=== PATIENT | male | born 1950 | race Caucasian/White ===

== ENCOUNTER 2020-05-25 06:39 | Outpatient (CLI) | payer MEDICARE, OTHER, SELFPAY ==
--- NOTE | 2020-05-25 07:15 | USCV_ITS ---
Artur Scott Age: 69 Gender: M : 1950 Exam Date: 05/25/2020 07:07 Ordering Phys: Kenn Barragan MD ([email or web address]) Technologist: Rula Aguirre [place] [facility] [place]: BRADYCARDIA BP: 156 / 80 HR: 44 Rhythm: Sinus Technical Quality: Adequate MEASUREMENTS (Male / Female) Normal Values 2D ECHO LV Diastolic Diameter PLAX 3.1 cm 4.2 - 5.9 / 3.9 - 5.3 cm LV Systolic Diameter PLAX 2.2 cm LV Chamber Size 4.9 cm IVS Diastolic Thickness 1.3 cm 0.6 - 1.0 / 0.6 - 0.9 cm IVS Systolic Thickness 1.6 cm LVPW Diastolic Thickness 1.3 cm 0.6 - 1.0 / 0.6 - 0.9 cm LVPW Systolic Thickness 1.4 cm RV Chamber Size 3.5 cm LVOT Diameter 2.0 cm LV Ejection Fraction 2D Teich 56.5 % LV Ejection Fraction MOD 2C 56.3 % LV Ejection Fraction 2C AL 55.5 % LA Diameter 2.5 cm LA Width 4.3 cm LA Height 5.1 cm RA Width 4.4 cm RA Height 5.0 cm Aorta at Sinotubular Diameter 3.1 cm M-MODE LV Diastolic Diameter MM 5.0 cm 4.2 - 5.9 / 3.9 - 5.3 cm LV Systolic Diameter MM 3.0 cm LV Ejection Fraction MM Teich 69.5 % IVS Diastolic Thickness MM 1.1 cm 0.6 - 1.0 / 0.6 - 0.9 cm IVS Systolic Thickness MM 1.3 cm LVPW Diastolic Thickness MM 0.7 cm 0.6 - 1.0 / 0.6 - 0.9 cm LVPW Systolic Thickness MM 1.5 cm Aortic Annulus Diameter 3.1 cm LA Ao Ratio MM 0.8 MV E Point Septal Separation 0.6 cm DOPPLER AV Peak Velocity 163.7 cm/s LVOT Peak Velocity 104.0 cm/s AV Area Cont Eq vti 1.9 cm squared AV Area Cont Eq pk 2.1 cm squared MV Area PHT 3.2 cm squared Mitral E to A Ratio 0.9 MV E' Velocity 42.5 cm/s Mitral E to MV E' Ratio 7.5 Mitral E to LV E' Lateral Ratio 6.3 Mitral E to LV E' Septal Ratio 9.3 TR Peak Velocity 171.3 cm/s TR Peak Gradient 11.7 mmHg TV Peak E Velocity 44.0 cm/s Right Atrial Pressure 3.0 mmHg Pulmonary Artery Systolic Pressu 14.7 mmHg PV Peak Velocity 57.0 cm/s RV Acceleration Time 0.1 s RV Ejection Time 0.4 s RV AcT/ET 0.4 FINDINGS Left Ventricle Normal left ventricular size and systolic function, EF 55 %. Mild left ventricular hypertrophy. Right Ventricle The right ventricle is normal in size and function. Right Atrium Mildly increased right atrial size. Left Atrium Mildly increased left atrial size. Mitral Valve No gross abnormalities noted Aortic Valve Trace to mild aortic valve regurgitation. Thickened aortic valve. Tricuspid Valve Trace to mild tricuspid valve regurgitation. Pulmonic Valve Pulmonic valve not well visualized. Pericardium Normal pericardium without effusion. Aorta Normal aortic annulus size. CONCLUSIONS Normal left ventricular size and systolic function, EF 55 %. Mild left ventricular hypertrophy. Mild biatrial enlargement. Thickened aortic valve. Trace to mild aortic valve regurgitation. Trace to mild tricuspid valve regurgitation. Estimated pulmonary artery peak systolic pressure of 15 mmHg. There is no pericardial effusion. There are no intracardiac masses. No previous study is available for comparison. Dr Ivett Womakc MD [facility] (Electronically Signed) Final Date: 31 May 2020 02:24 S
== END 2020-05-25 06:40 | disposition home or self-care (01) ==
LOC: US 06:40
PROVIDERS: PCP Student in an Organized Health Care Education/Training Program; Visit Provider Internal Medicine Cardiovascular Disease
DX: R00.1 Bradycardia, unspecified (principal); I08.2 Rheumatic disorders of both aortic and tricuspid valves
CPT/HCPCS: 93306

== ENCOUNTER → 2021-11-03 09:49 | Outpatient (BNVA) | payer MEDICARE, OTHER, SELFPAY | PROVIDERS: PCP Student in an Organized Health Care Education/Training Program; Visit Provider Internal Medicine | DX: R00.1 Bradycardia, unspecified (principal); R07.2 Precordial pain; R06.00 Dyspnea, unspecified | CPT/HCPCS: 99214 ==

== ENCOUNTER 2022-02-18 03:34 | Inpatient (IN) | payer MEDICARE, OTHER, SELFPAY ==
[2022-02-18] VITALS (8 sets, daily range): BP systolic 122–137; BP diastolic 69–84; PULSE 52–73; RESP 14–16; TEMP 36.7–37.4; O2SAT 93–98
--- NOTE | 2022-02-18 03:48 | PM.HP ---
Providers/Chief Complaint Admitting Physician: Jacinto Gtz MD Primary Care Provider: Delmar Darnell Chief Complaint: right knee infusion,CVA History of Present Illness Artur Scott is a 71 year old male with a past medical history of bradycardia, mild LVH, tree of osteoarthritis, history of TIA, COPD, who presents to [facility] as a transfer from [facility] for right knee swelling, and concerns for subacute CVA. Currently patient is alert oriented x3, has slurring of his words, mild left facial droop, his speech is at times difficult to understand given his slurring of his words. He tells me that he initially presented to [facility] due to severe right knee swelling and right knee pain, he tells me that this is a chronic issue from him he has had it for years due to severe right knee osteoarthritis. However the right knee pain and swelling has significantly worsened such that he is not able to ambulate and that is why he went to [facility]. He had a CT of his right knee which showed a right knee joint effusion, WBC count 7.7, no other significant electrolyte abnormalities, due to slurring of his words, CT scan of the head was ordered, which revealed left internal capsule small subacute to early chronic infarct. This was the reason for transfer. Patient tells me that he has had slurred words, for some period of time, he has had a stroke in the past. He tells me that his slurred speech is chronic, but is worsened over the last few days, no focal neurologic deficits, no focal numbness, no trouble coordinating, no recent falls, no visual deficits, his only complaint is difficulty walking due to severe right knee pain. [facility] was consulted by ER physician, they recommended evaluation at stroke dedicated hospital. That timeframe of his stroke is unknown, as he has not noticed any differences recently except his slight worsening of his slurred speech, he does have a slight left facial droop on examination, however he tells me he has not noticed anything nor has his . Review of Systems Eyes: Denies: change in vision Card: Denies: chest pain Resp: Denies: dyspnea GI: Denies: abdominal pain Musc: Reports: extremity pain, extremity swelling, joint pain and joint swelling Skin/Breast: Denies: rash Neuro: Reports: difficulty walking; Denies: headache(s), numbness in extremities, weakness in extremities, sensory changes, lack of coordination, confusion or difficulty communicating thoughts Medications/Allergies Home Medications Medication Instructions Recorded Confirmed Last Taken Type ibuprofen 800 mg tablet 800 mg PO Q8H 05/11/20 11/03/21 Unknown History omeprazole 20 mg capsule,delayed 20 mg PO DAILY 05/11/20 11/03/21 Unknown History release mirtazapine 15 mg tablet 15 mg PO DAILY PRN 11/03/21 11/03/21 Unknown History trazodone 50 mg tablet 100 mg PO DAILY PRN 11/03/21 11/03/21 Unknown History tamsulosin 0.4 mg capsule (Flomax) 0.4 mg PO DAILY 02/18/22 02/18/22 Unknown History Allergies Allergy/AdvReac Type Severity Reaction Status Date / Time Penicillins Allergy shortness Verified 11/03/21 10:02 of breath codeine AdvReac Intermediate vomiting Verified 11/03/21 10:02 PFSH Acute PFSH: Medical History BPH (benign prostatic hyperplasia) Bradycardia Chest pain CVA (cerebral vascular accident) GERD (gastroesophageal reflux disease) History of pituitary tumor Insomnia Major depression Pituitary adenoma Rotator cuff tear Sleep apnea TBI (traumatic brain injury) Surgical History H/O: knee surgery History of abdominal surgery History of appendectomy History of back surgery Hx of cholecystectomy Family History Other Cancer Hypertension Denies family history of Diabetes CAD (coronary artery disease) Dementia Psychiatric illness Chronic kidney disease (CKD) Family history of premature coronary artery disease Lung disease Stroke Social History Smoking and tobacco status: former smoker Alcohol intake: never Physical Exam Const: COMMON NORMALS: no acute distress and patient oriented x3 HENMT: COMMON NORMALS: normocephalic HEAD & SCALP: normocephalic Eye: COMMON NORMALS: Equal, round and reactive pupils present and EOMs intact bilaterally Neck/C-Spine: COMMON NORMALS: no JVD Resp: COMMON NORMALS: normal respiratory effort, No retractions, No use of accessory muscles and clear to auscultation bilaterally AUSCULTATION: clear to auscultation bilaterally Cardio: COMMON NORMALS: no JVD, regular rate, regular rhythm, S1 normal heart sound present and S2 normal heart sound present RATE: regular rate RHYTHM: regular rhythm HEART SOUNDS: S1 normal heart sound present and S2 normal heart sound present GI: COMMON NORMALS: Normal to inspection, nondistended, normoactive bowel sounds present, Soft to palpation, non-tender, No hepatosplenomegaly present, no masses and no bruits PALPATION: Yes Soft to palpation and Yes No hepatosplenomegaly present Extremity: COMMON NORMALS: no pedal edema NARRATIVE EXTREMITY EXAM: On examination, right knee swelling, erythema, tenderness Neuro: COMMON NORMALS: patient oriented x3, CN's II-XII intact bilaterally, moves all extremities and no focal motor deficits OTHER: Slurring of words, mild left facial droop Psych: COMMON NORMALS: mental status grossly normal A&P Assessment and plan (1) CVA (cerebral vascular accident): Status: Acute (2) Swelling of right knee joint: Status: Acute Plan Right knee swelling -No fever, complaints, no leukocytosis -He reports chronic right knee swelling for many years, recently worse, now pain with ambulation, no history of right knee surgery, no history of replacement -Likely related to osteoarthritis -I feel unlikely to be septic knee joint -However will order inflammatory markers, CBC, Pro-Osmel, ESR, CBC, uric acid -We will consult orthopedic service in the morning about arthrocentesis CVA -Timeframe unknown -Does have chronic slurring of his words, now acutely worsened, with left facial droop on examination, patient has not noticed anything, no other focal neurologic deficits -Aspirin, statin -Carotid artery ultrasound, cardiac echo -PT OT, speech therapy eval -Full code -SCDs for DVT prophylaxis for now, hold Lovenox and plans for arthrocentesis Attestations Medical Necessity Statement*: Patient requires hospitalization, outpatient with observation, for CVA, right knee swelling Coding Level of Care Code Acute Film Maker for Bryan Gudino Diagnoses CVA (cerebral vascular accident) I63.9 Swelling of right knee joint M25.461
--- NOTE | 2022-02-18 03:58 | USR_ITS ---
PROCEDURE INFORMATION: Exam: US Duplex Bilateral Extracranial Arteries, Carotid Arteries Exam date and time: 02/18/2022 4:44 AM Age: 71 years old Clinical indication: Speech disturbance; Patient HX: PT has had slurred speech for awhile but tonight Thought it was worse. ; Additional info: CVA TECHNIQUE: Imaging protocol: Real-time Duplex ultrasound scan of the bilateral carotid and vertebral arteries combining gambino scale, color Doppler and spectral waveform analysis. Bilateral exam. Exam focused on the carotid arteries. COMPARISON: No relevant prior studies available. FINDINGS: Right common carotid artery: Unremarkable. No occlusion or stenosis. Waveforms are normal. PSV 94.8 cm/s in the mid common carotid artery. Right internal carotid artery: Unremarkable. No occlusion or stenosis. Waveforms are normal. PSV 93.7 cm/s for the proximal right ICA. Right ICA/CCA ratio: Within normal limits. Right external carotid artery: No stenosis in the origin. Right vertebral artery: Unremarkable. Antegrade flow. Left common carotid artery: Unremarkable. No occlusion or stenosis. Waveforms are normal. PSV 78.9 cm/s for proximal CCA. Left internal carotid artery: Unremarkable. No occlusion or stenosis. Waveforms are normal. PSV 74.9 cm/s for the distal ICA. Left ICA/CCA ratio: Within normal limits. Left external carotid artery: No stenosis in the origin. Left vertebral artery: Unremarkable. Antegrade flow. US/CV carotid duplex BI* [id number] IMPRESSION: No carotid arterial stenosis. REFERENCES: SRU CRITERIA. The degree of internal carotid artery stenosis is based on criteria defined by the Society of Radiologists in Ultrasound (SRU). Normal is no stenosis. Mild is less than 50% stenosis. Moderate is 50-69% stenosis. Severe is greater than 69% stenosis to near occlusion. Near occlusion is a markedly narrowed lumen. Total occlusion is no detectable patent lumen.
--- NOTE | 2022-02-18 03:58 | USCV_ITS ---
Artur Scott Age: 71 Gender: M : 1950 Exam Date: 02/18/2022 04:22 Ordering Phys: Jacinto Gtz MD Technologist: Cathi Almonte [place] [facility] [place]: CVA BP: / HR: 53 Rhythm: Sinus Technical Quality: Adequate MEASUREMENTS (Male / Female) Normal Values 2D ECHO LV Diastolic Diameter PLAX 4.1 cm 4.2 - 5.9 / 3.9 - 5.3 cm LV Systolic Diameter PLAX 2.4 cm LV Chamber Size 4.0 cm IVS Diastolic Thickness 1.2 cm 0.6 - 1.0 / 0.6 - 0.9 cm IVS Systolic Thickness 1.3 cm LVPW Diastolic Thickness 1.2 cm 0.6 - 1.0 / 0.6 - 0.9 cm LVPW Systolic Thickness 1.4 cm RV Chamber Size 3.9 cm LVOT Diameter 2.0 cm LV Ejection Fraction 2D Teich 72.4 % LV Ejection Fraction MOD 2C 72.0 % LV Ejection Fraction 2C AL 71.5 % LA Diameter 2.9 cm LA Width 2.7 cm LA Height 3.3 cm RA Width 3.3 cm RA Height 2.8 cm Aorta at Sinotubular Diameter 2.8 cm IVC Diameter 0.9 cm M-MODE Aortic Annulus Diameter 2.7 cm LA Ao Ratio MM 1.2 MV E Point Septal Separation 0.1 cm DOPPLER AV Peak Velocity 147.0 cm/s LVOT Peak Velocity 90.0 cm/s AV Area Cont Eq vti 2.2 cm squared AV Area Cont Eq pk 1.9 cm squared MV Area PHT 2.1 cm squared Mitral E to A Ratio 0.9 MV E' Velocity 39.0 cm/s Mitral E to MV E' Ratio 5.7 Mitral E to LV E' Lateral Ratio 6.3 Mitral E to LV E' Septal Ratio 5.2 TR Peak Velocity 196.8 cm/s TR Peak Gradient 15.5 mmHg TR Mean Velocity 137.9 cm/s TR Mean Gradient 9.8 mmHg TR Velocity Time Integral 45.7 cm TV Peak E Velocity 70.0 cm/s Right Atrial Pressure 3.0 mmHg Pulmonary Artery Systolic Pressu 18.5 mmHg RV Acceleration Time 0.2 s RV Ejection Time 0.3 s RV AcT/ET 0.5 FINDINGS Left Ventricle Normal left ventricular size, systolic function and wall thickness, with no regional wall motion abnormalities. Grade I/IV diastolic dysfunction (abnormal relaxation filling pattern), normal to mildly elevated filling pressures. Left ventricular ejection fraction is estimated at 65 %. Right Ventricle Normal right ventricular size and systolic function. Normal right ventricular systolic pressure. Right Atrium The right atrium is normal in size. Left Atrium The left atrium is normal in size. Mitral Valve Structurally normal mitral valve without significant stenosis or prolapse. There is no mitral regurgitation. Aortic Valve Structurally normal trileaflet aortic valve. Mild aortic valve regurgitation. No aortic valve stenosis. Tricuspid Valve Structurally normal tricuspid valve. Mild tricuspid valve regurgitation. Pulmonic Valve Pulmonic valve not well visualized. Pericardium Normal pericardium without effusion. Aorta Normal ascending aorta dimension. IVC The inferior vena cava appears normal. CONCLUSIONS Normal left ventricular size, systolic function and wall thickness, with no regional wall motion abnormalities. Grade I/IV diastolic dysfunction (abnormal relaxation filling pattern), normal to mildly elevated filling pressures. Left ventricular ejection fraction is estimated at 65 %. Structurally normal trileaflet aortic valve. Mild aortic valve regurgitation. No aortic valve stenosis. No significant change since the prior echocardiogram study of 05/31/20 Dr. Fox Farrar MD (Electronically Signed) Final Date: 18 February 2022 08:29 S
--- NOTE | 2022-02-18 04:01 | ECG_ITS ---
[facility] Test Date: 2022-02-18 Pat Name: Artur Scott Department: Room: 263 Gender: Male Giver: : 1950 Requested By: Jacinto Gzt Order Number: [id number] Mike MD: Fox Farrar M.D. Measurements Intervals [place] Rate: 54 P: 61 SD: 180 QRS: 27 QRSD: 90 T: 53 QT: 436 QTc: 413 Interpretive Statements SINUS BRADYCARDIA No previous ECG available for comparison Electronically Signed On 02-18-2022 8:37:19 CDT by Fox Farrar M.D. [id number]
--- NOTE | 2022-02-18 04:08 | PC.NURSE ---
Patient has slurred speech. Software Design Manager are equal. Patient is alert and oriented x4. PERRLA present. Patient has swelling to right knee.
[2022-02-18] MEDS: acetaminophen 325 mg Tablet 650 MG PO (04:13)
[2022-02-18] MEDS: sodium chloride 0.9% 1,000 ML 50 ML IV ×2 (04:14→19:54)
--- NOTE | 2022-02-18 04:20 | PC.NURSE ---
Patient has drift to right leg, however patient states that it is due to pain in his right leg. Patient educated furnace converter light and has call light within reach.
--- NOTE | 2022-02-18 05:08 | PC.NURSE ---
Patient refusing SCD to right leg due to having pain in right leg.
[2022-02-18 05:56] LABS: Basophils # 0.1 10^3/uL (0.0-0.1); Basophils % 0.8 %; Eosinophils # 0.3 10^3/uL (0.0-0.8); Eosinophils % 3.8 %; Hematocrit 37.7 % (42.0-52.0); Hemoglobin 11.9 g/dL (11.7-16.6); Lymphocytes # 1.8 10^3/uL (0.8-4.8); Lymphocytes % 22.2 %; Mean Corpuscular HGB Conc 31.6 g/dL (30.0-36.0); Mean Corpuscular Hemoglobin 28.7 pg (28.0-34.0); Mean Corpuscular Volume 91.1 fl (80-94); Mean Platelet Volume 10.4 fL (7.4-10.4); Monocytes % 12.6 %; Neutrophils # 4.78 10^3/uL (1.8-7.7); Neutrophils % 60.2 %; Nucleated Red Blood Cells % 0 %; Platelet Count 276 10^3/cmm (130-400); Red Blood Count 4.14 10^6/uL (4.1-5.3); Red Cell Distribution Width 12.6 % (12.1-15.1); White Blood Count 7.9 10^3/uL (4.0-10.0)
[2022-02-18 06:01] LABS: Erythrocyte Sedimentation Rate 38 mm/hr (0-10)
[2022-02-18 06:21] LABS: Troponin(5th) Baseline 12 ng/L (0-15)
[2022-02-18 06:30] LABS: Procalcitonin 0.07 ng/mL (0-0.5)
[2022-02-18 06:32] LABS: Estmated Average Glucose 105; Hemoglobin A1C 5.3 % (4.0-6.0)
--- NOTE | 2022-02-18 06:41 | ECG_ITS ---
[facility] Test Date: 2022-02-18 Pat Name: Artur Scott Department: Room: 263 Gender: Male Loan Teller: : 1950 Requested By: Jacinto Gtz Order Number: [id number] Mike MD: Fox Farrar M.D. Measurements Intervals [place] Rate: 53 P: 64 AL: 180 QRS: 33 QRSD: 98 T: 55 QT: 450 QTc: 424 Interpretive Statements SINUS BRADYCARDIA Compared to ECG 02/18/2022 05:14:06 No significant changes Electronically Signed On 02-18-2022 8:40:13 CDT by Fox Farrar M.D. [id number]
[2022-02-18 06:42] LABS: C Reactive Protein 29.3 mg/L (0.0-4.9); Cholesterol 135 mg/dL (0-200); HDL Cholesterol 54 mg/dL (60-100); LDL Cholesterol Calculated 70 mg/dL (50-129); Triglycerides 57 mg/dL (0-150); Uric Acid 4.9 mg/dL (3.4-7.0)
[2022-02-18 08:13] LABS: Troponin 5 2HR 11.98 ng/L (0-15)
[2022-02-18] MEDS: aspirin 81 mg EC Tablet PO (08:13)
[2022-02-18 08:31] LABS: Troponin 5 2HR Delta -0.02 ABS# (0-10)
--- NOTE | 2022-02-18 09:24 | ECG_ITS ---
[facility] Test Date: 2022-02-18 Pat Name: Artur Scott Department: Room: 263 Gender: Male Manager Paper: : 1950 Requested By: Jacinto Gtz Order Number: [id number] Mike MD: Fox Farrar M.D. Measurements Intervals [place] Rate: 69 P: 61 ID: [id number] QRS: 5 QRSD: 96 T: 51 QT: 404 QTc: 434 Interpretive Statements SINUS RHYTHM Compared to ECG 02/18/2022 06:41:25 Sinus bradycardia no longer present Electronically Signed On 02-18-2022 17:38:20 CDT by Fox Farrar M.D. [id number]
--- NOTE | 2022-02-18 11:34 | CTR_ITS ---
PROCEDURE INFORMATION: Exam: CT Right Lower Extremity Without Contrast, Knee Exam date and time: 02/18/2022 8:14 PM Age: 71 years old Clinical indication: Pain; Knee; Right; Additional info: RT knee swelling TECHNIQUE: Imaging protocol: CT of the Right lower extremity without contrast was performed. Exam focused on the knee. Radiation optimization: All CT scans at this facility use at least one of these dose optimization techniques: automated exposure control; mA and/or kV adjustment per patient size (includes targeted exams where dose is matched to clinical indication); or iterative reconstruction. COMPARISON: No relevant prior studies available. RADIATION DOSE METRICS: Total DLP (mGy-cm): 280.61 FINDINGS: Bones/joints: Tricompartmental primary osteoarthritic changes including joint space narrowing, subchondral cystic/sclerotic changes, and marginal osteophyte formations. Contour abnormality of the tibial spines likely represents sequela of chronic injury. No acute fracture is seen. There are ossified densities adjacent to the tibial spine which may represent loose bodies versus ligamentous calcifications. Large knee joint effusion. There is heterogeneous density in the expected location of the anterior cruciate ligament likely representing chronic injury. Soft tissues: There are benign-appearing soft tissue calcifications. There is edema in the soft tissues surrounding the knee most prominent anteriorly. Vasculature: There are peripheral vascular calcifications. Other findings: Septated Overton's cyst. CT/CT knee RT wo con* [id number] IMPRESSION: 1. Tricompartmental osteoarthritic changes are present in the knee as described above. 2. Large knee joint effusion. 3. Septated Overton's cyst. 4. There is heterogeneous density in the expected location of the anterior cruciate ligament likely representing chronic injury. 5. There are ossified densities adjacent to the tibial spine which may represent loose bodies versus ligamentous calcifications.
[2022-02-18 11:51] LABS: Troponin 5 6HR 8.73 ng/L (0-15)
[2022-02-18 12:42] LABS: Troponin 5 6HR Delta -3.27 ng/L (0-12)
--- NOTE | 2022-02-18 16:40 | PM.MISC ---
Miscellaneous Note Note: 71 year old male with a past medical history of bradycardia, mild LVH, tree of osteoarthritis, history of TIA,? COPD, who presents to [facility] as a transfer from [facility] for right knee swelling, and concerns for subacute CVA. Patient has chronic slurring of his words, states that it has slightly worsened, With left facial droop: Carotid Doppler: No carotid arterial stenosis.: 2D echo: Normal LV size and systolic function with EF of 65% grade 1 diastolic dysfunction, Structurally normal trileaflet aortic valve. Mild aortic valve regurgitation. No aortic valve stenosis. Patient has been continued on aspirin and statin. PT OT speech evaluation. Patient also presented with worsening right knee joint pain and swelling, denies any fall, insect bite, ESR:38 CRP: 29, WBC 7.9, denies any fever at home. Has a history of chronic osteoarthritis. CT scan of right knee without contrast is pending: Based on the CT scan orthopedic will be consulted. Awaiting CT scan to be done.
[2022-02-18] MEDS: atorvastatin 40 mg Tablet PO (19:54)
[2022-02-18] MEDS: trazodone 100 mg Tablet PO (19:54)
[2022-02-18] MEDS: mirtazapine 15 mg Tablet PO (19:54)
--- NOTE | 2022-02-18 22:14 | PC.NURSE ---
Patient stating that he is going to smoke a cigarette. Patient educated on smoking policy. Patient states I'm a grown man and I can do what I want. Patient again educated on smoking policy. Patient states That's just ridiculous, you can't stop me. Patient's bed alarm is set. ESTELLA Pierson at bedside with this nurse.
[2022-02-18] MEDS: morphine 4 mg/mL SDV 1 mL 2 MG IVP (22:21)
[2022-02-19] VITALS (8 sets, daily range): BP systolic 100–121; BP diastolic 62–73; PULSE 57–109; RESP 16–22; TEMP 36.4–37.6; O2SAT 91–96
[2022-02-19 04:54] LABS: Basophils % 0.5 %; Eosinophils # 0.1 10^3/uL (0.0-0.8); Eosinophils % 0.6 %; Hematocrit 36.8 % (42.0-52.0); Hemoglobin 11.5 g/dL (11.7-16.6); Lymphocytes % 11.7 %; Mean Corpuscular HGB Conc 31.3 g/dL (30.0-36.0); Mean Corpuscular Volume 92.7 fl (80-94); Mean Platelet Volume 10.4 fL (7.4-10.4); Monocytes # 1.3 10^3/uL (0.2-0.9); Monocytes % 14.8 %; Neutrophils # 6.33 10^3/uL (1.8-7.7); Neutrophils % 72.2 %; Nucleated Red Blood Cells % 0 %; Platelet Count 245 10^3/cmm (130-400); Red Blood Count 3.97 10^6/uL (4.1-5.3); Red Cell Distribution Width 12.4 % (12.1-15.1); White Blood Count 8.8 10^3/uL (4.0-10.0)
[2022-02-19 05:23] LABS: Anion Gap 11.9 (5-19); Blood Urea Nitrogen 17 mg/dL (8-23); Calcium 8.5 mg/dL (8.5-10.5); Carbon Dioxide 23 mmol/L (22-29); Chloride 104 mmol/L (98-107); Glucose 135 mg/dL (65-115); Osmolality Calculated 284 mOsm/kg (285-295); Potassium 3.9 mmol/L (3.5-5.1); Sodium 135 mmol/L (136-145)
[2022-02-19] MEDS: pantoprazole DR 40 mg Tablet PO (09:26)
[2022-02-19] MEDS: aspirin 81 mg EC Tablet PO (09:26)
[2022-02-19] MEDS: tamsulosin 0.4 mg Capsule PO (09:26)
[2022-02-19] MEDS: acetaminophen 325 mg Tablet 650 MG PO (11:09)
--- NOTE | 2022-02-19 16:00 | P.CONIM_ITS ---
Providers/Reason For Consult Consulting Physician/Specialty*: Artur Marie MD; orthopedic surgery Reason for Consult*: Right knee effusion Attending Physician: Licha Galvin MD Primary Care Provider: Delmar Darnell History of Present Illness History of Present Illness Artur Scott is a 71 year old male admitted from [facility] on 02/18/2022 with right knee swelling and concerns for a subacute cerebrovascular accident. The patient describes years of pain in the right knee attributable to osteoarthritis. He underwent aspiration 3 years ago. He stated however this weekend the knee pain increased to the point where he can scarcely ambulate. CT scan on admission revealed tricompartmental osteoarthritis large knee effusion. Sed rate on admission was 38. C-reactive protein was elevated at 29.3 he denies any fevers or chills. He denies any recent febrile illnesses chronic wounds or other suggestions of infection. He has been evaluated here for a subacute cer ebrovascular accident Medications/Allergies Home Medications Medication Instructions Recorded Confirmed Last Taken Type ibuprofen 800 mg tablet 800 mg PO Q8H PRN Pain 05/11/20 02/18/22 Unknown History omeprazole 20 mg capsule,delayed 20 mg PO DAILY 05/11/20 02/18/22 Unknown History release mirtazapine 15 mg tablet 15 mg PO BEDTIME 11/03/21 02/18/22 Unknown History trazodone 50 mg tablet 100 mg PO BEDTIME PRN Sleep 11/03/21 02/18/22 Unknown History tamsulosin 0.4 mg capsule (Flomax) 0.4 mg PO DAILY 02/18/22 02/18/22 Unknown History Allergies Allergy/AdvReac Type Severity Reaction Status Date / Time buspirone [From BuSpar] Allergy Unknown Verified 02/18/22 06:10 Penicillins Allergy shortness Verified 02/18/22 05:41 of breath codeine AdvReac Intermediate vomiting Verified 02/18/22 05:41 Current Medications Generic Name Dose Route Start Last Admin Trade Name Freq PRN Reason Stop Dose Admin Acetaminophen 650 mg 02/18/22 03:58 02/19/22 11:09 Acetaminophen 325 Mg Tablet PO 650 mg Q6H PRN Administration Mild/Mod Pain Or Temp >/= 101 Aspirin 81 mg 02/18/22 09:00 02/19/22 09:26 Aspirin 81 Mg Ec Tablet PO 81 mg DAILY DENISA Administration Atorvastatin Calcium 40 mg 02/18/22 21:00 02/18/22 19:54 Atorvastatin 40 Mg Tablet PO 40 mg BEDTIME DENISA Administration Sodium Chloride 1,000 mls @ 50 mls/hr 02/18/22 04:00 02/18/22 19:54 Sodium Chloride 0.9% IV 50 mls/hr .Q20H DENISA Administration Mirtazapine 15 mg 02/18/22 21:00 02/18/22 19:54 Mirtazapine 15 Mg Tablet PO 15 mg BEDTIME DENISA Administration Morphine Sulfate 2 mg 02/18/22 03:58 02/18/22 22:21 Morphine 4 Mg/Ml Sdv 1 Ml IVP 2 mg Q4H PRN Administration SEVERE PAIN Pantoprazole Sodium 40 mg 02/19/22 09:00 02/19/22 09:[address] 40 Mg Tablet PO 40 mg DAILY DENISA Administration Tamsulosin HCl 0.4 mg 02/19/22 09:00 02/19/22 09:26 Tamsulosin 0.4 Mg Capsule PO 0.4 mg DAILY DENISA Administration Trazodone HCl 100 mg 02/18/22 11:36 02/18/22 19:54 Trazodone 100 Mg Tablet PO 100 mg BEDTIME PRN Administration Sleep PFSH Acute PFSH: Medical History BPH (benign prostatic hyperplasia) Bradycardia Chest pain CVA (cerebral vascular accident) GERD (gastroesophageal reflux disease) History of pituitary tumor Insomnia Major depression Pituitary adenoma Rotator cuff tear Sleep apnea TBI (traumatic brain injury) Surgical History H/O: knee surgery History of abdominal surgery History of appendectomy History of back surgery Hx of cholecystectomy Family History Other Cancer Hypertension Denies family history of Diabetes CAD (coronary artery disease) Dementia Psychiatric illness Chronic kidney disease (CKD) Family history of premature coronary artery disease Lung disease Stroke Social History Smoking and tobacco status: former smoker Alcohol intake: never Vitals/I&O/Wt Last Vital Signs Temp 97.7 F 02/19/22 11:53 Pulse 60 02/19/22 11:53 Resp 16 02/19/22 11:53 BP 113/72 02/19/22 11:53 Pulse Ox 96 02/19/22 11:53 O2 Del Method 02/19/22 11:53 02/19/22 02/19/22 02/19/22 06:59 14:59 22:59 Intake Total 600 / 600 Output Total 575 / 1725 700 / 700 Balance -575 / -461.667 -100 / -100 Weight last 48 hrs Weight 162 lb Weight 161 lb 9 oz Physical Exam Narrative: The patient is supine in bed and appears comfortable He has a large effusion to his right knee and holds his knee flexed approximately 30 degrees. He guards with any attempts at motion of the knee. Overlying skin is free of erythema but the knee is warm He will flex and extend his right toes. His right lower extremity sensation intact light touch. He has a strong right dorsalis pedis pulse. Data : 02/19/22 04:34 02/19/22 04:34 Micro: Microbiology 02/18/22 05:33 Blood Culture - Preliminary Blood NEGATIVE TO DATE 02/18/22 05:30 Blood Culture - Preliminary Blood NEGATIVE TO DATE Other CT: Radiologist's impression: CT scan report of the right knee is reviewed. The patient has tricompartmental degenerative changes and a large effusion.. A Overton's cyst is identified. A&P Assessment and plan (1) Swelling of right knee joint: The patient has a massive effusion of the right knee with elevated sed rate and C-reactive protein. Certainly infection is within the differential. He has no history of gout but that is also a consideration. I think her best course of action would be aspirate the knee. The fluid being set off her cell counts, crystal analysis, and the cultures we can make plans for future further treatment. I discussed aspirating the knee with the patient and they agreed to proceed. The right knee was prepped laterally with Betadine. The skin was anesthetized with 1 cc of 1% lidocaine. An 18-gauge needle was introduced over the lateral knee. 30 cc of cloudy fluid were aspirated. This fluid was sent off for cell counts, crystals, and culture. I will continue to follow with the primary team. Status: Acute Coding Level of Care Code Acute Learning Disabilities Specialist for Bryan Gudino Diagnoses Swelling of right knee joint M25.461 Comment CPT 68956
--- NOTE | 2022-02-19 17:23 | PM.PN ---
Subjective Subjective: Continues to complain of pain over his right knee. Noted again significant swelling around the knee joint. Overnight CT of his knee was performed which showed extensive joint effusion and a Overton's cyst. Orthopedics has been consulted for arthrocentesis. Medications: Reviewed: Yes Vitals/I&O/Wt Last Vital Signs Temp 98.1 F 02/19/22 15:59 Pulse 70 02/19/22 15:59 Resp 16 02/19/22 15:59 BP 121/72 02/19/22 15:59 Pulse Ox 95 02/19/22 15:59 O2 Del Method 02/19/22 15:59 02/19/22 02/19/22 02/19/22 06:59 14:59 22:59 Intake Total 600 / 600 Output Total 575 / 1725 700 / 700 Balance -575 / -461.667 -100 / -100 Weight last 48 hrs Weight 73.482 kg Weight 73.284 kg Physical Exam Narrative: General: No acute distress, AO x3 HEENT: PERRLA, pupils bilaterally equal and reactive, pallors not present Chest: Normal vesicular breath sounds, no added sounds, equal good air entry bilaterally CVS: S1-S2 regular, no murmurs, no tachycardia, no gallops, no rubs Abdomen: Soft, nontender, no organomegaly, bowel sounds present Neuro: No focal deficits, no facial deformity, AO x3, power 5/5 in all limbs Extremities: Significant swelling about the right knee, discomfort to palpation. Data : 02/19/22 04:34 02/19/22 04:34 Micro: Microbiology 02/18/22 05:33 Blood Culture - Preliminary Blood NEGATIVE TO DATE 02/18/22 05:30 Blood Culture - Preliminary Blood NEGATIVE TO DATE A&P Assessment and plan (1) CVA (cerebral vascular accident): Status: Acute (2) Swelling of right knee joint: Status: Acute Plan Right knee swelling -Knee CT performed on February 18 showed severe osteoarthritic changes, large knee joint effusion and a septated Overton's cyst. Due to concern for septic arthritis,, orthopedics has been consulted for arthrocentesis. Will await fluid analysis and culture. No indication for antibiotics at this present time. CVA -Timeframe unknown -Does have chronic slurring of his words, now acutely worsened, with left facial droop on examination, no other focal neurologic deficits -Aspirin, statin to continue -Carotid artery ultrasound negative for stenosis, cardiac echo grade 1 diastolic dysfunction -PT OT, speech therapy eval appreciated -Full code Attestations Medical Necessity Statement*: Planned arthrocentesis today. Coding Level of Care Code Acute Industrial Technology Teacher for Bryan Gudino Diagnoses CVA (cerebral vascular accident) I63.9 Swelling of right knee joint M25.461
[2022-02-19 17:25] LABS: RBC Synovial Fluid 1 10^3/uL (0-0); Synovial Fluid Mononuclear # 0.587 10^3/uL; Synovial Fluid Polynuclear # 17.639 10^3/uL; WBC Synovial Fluid 18226 /uL (0-150)
[2022-02-19 17:50] LABS: Appearance Synovial Fluid HAZY (CLEAR); Color Synovial Fluid PALE YELLOW (PALE YELLOW); PATH Referal YES
[2022-02-19 18:25] LABS: Crystals, Fluid See Path Consult
[2022-02-19] MEDS: mirtazapine 15 mg Tablet PO (19:50)
[2022-02-19] MEDS: sodium chloride 0.9% 1,000 ML 50 ML IV (19:50)
[2022-02-19] MEDS: trazodone 100 mg Tablet PO (19:50)
[2022-02-19] MEDS: atorvastatin 40 mg Tablet PO (19:50)
[2022-02-20] VITALS (8 sets, daily range): BP systolic 110–137; BP diastolic 59–80; PULSE 52–68; RESP 16–18; TEMP 36.4–36.8; O2SAT 93–98
[2022-02-20 03:26] LABS: Blood Urea Nitrogen 16 mg/dL (8-23); Calcium 8.6 mg/dL (8.5-10.5); Carbon Dioxide 22 mmol/L (22-29); Chloride 103 mmol/L (98-107); Glucose 99 mg/dL (65-115); Osmolality Calculated 283 mOsm/kg (285-295); Sodium 136 mmol/L (136-145)
[2022-02-20 03:27] LABS: Basophils # 0.1 10^3/uL (0.0-0.1); Basophils % 0.7 %; Eosinophils # 0.3 10^3/uL (0.0-0.8); Eosinophils % 4.4 %; Hematocrit 37.9 % (42.0-52.0); Hemoglobin 11.1 g/dL (11.7-16.6); Lymphocytes # 1.8 10^3/uL (0.8-4.8); Lymphocytes % 24.8 %; Mean Corpuscular HGB Conc 29.3 g/dL (30.0-36.0); Mean Corpuscular Hemoglobin 29.4 pg (28.0-34.0); Mean Platelet Volume 10.8 fL (7.4-10.4); Monocytes % 13.9 %; Neutrophils # 3.98 10^3/uL (1.8-7.7); Neutrophils % 55.9 %; Nucleated Red Blood Cells % 0 %; Platelet Count 233 10^3/cmm (130-400); Red Blood Count 3.78 10^6/uL (4.1-5.3); Red Cell Distribution Width 12.7 % (12.1-15.1); White Blood Count 7.1 10^3/uL (4.0-10.0)
[2022-02-20 03:31] LABS: Mean Corpuscular Volume 100.3 fl (80-94)
[2022-02-20] MEDS: tamsulosin 0.4 mg Capsule PO (10:21)
[2022-02-20] MEDS: aspirin 81 mg EC Tablet PO (10:22)
[2022-02-20] MEDS: pantoprazole DR 40 mg Tablet PO (10:22)
--- NOTE | 2022-02-20 13:11 | P.PN_ITS ---
Subjective Subjective: still with pain in right knee Swelling has appeared to improve after the aspiration yesterday, however increased again this morning. Significant pain with minimal movement at the knee joint. Synovial fluid aspirate from yesterday showed 18,000 white blood cells, predominant 96% polynuclear. Gram stain not currently reported. Pending path assessment for crystals. Medications: Reviewed: Yes Vitals/I&O/Wt Last Vital Signs Temp 98.1 F 02/20/22 12:00 Pulse 64 02/20/22 12:00 Resp 16 02/20/22 12:00 BP 134/80 02/20/22 12:00 Pulse Ox 97 02/20/22 12:00 O2 Del Method 02/20/22 12:00 02/19/22 02/20/22 02/20/22 22:59 06:59 14:59 Intake Total 1000 / 1600 360 / 360 Output Total 225 / 925 600 / 1525 Balance 775 / 675 -600 / 75 360 / 360 Physical Exam Narrative: General: No acute distress, AO x3 HEENT: PERRLA, pupils bilaterally equal and reactive, pallors not present Chest: Normal vesicular breath sounds, no added sounds, equal good air entry bilaterally CVS: S1-S2 regular, no murmurs, no tachycardia, no gallops, no rubs Abdomen: Soft, nontender, no organomegaly, bowel sounds present Neuro: No focal deficits, no facial deformity, AO x3, power 5/5 in all limbs Data : 02/20/22 02:01 02/20/22 02:01 A&P Assessment and plan (1) CVA (cerebral vascular accident): Status: Acute (2) Swelling of right knee joint: Status: Acute Plan Right knee swelling -Knee CT performed on February 18 showed severe osteoarthritic changes, large knee joint effusion and a septated Overton's cyst. Due to concern for septic arthritis,, arthrocentesis was performed yesterday. WBC count 18,000, predominantly PMNLs (96%) Gram stain and culture pending Assessment for crystal pending Start ketorolac for pain control and anti-inflammatory effect. Additionally started on prednisone 40 mg p.o. daily given significant pain and inflammation while awaiting results from synovial aspirate. Change to inpatient as patient is currently undergoing evaluation for acute knee swelling, septic arthritis has not yet been excluded. Additionally significant impairment in his mobility and needs IV pain management. CVA -Timeframe unknown -Does have chronic slurring of his words, now acutely worsened, with left facial droop on examination, no other focal neurologic deficits -Aspirin, statin to continue -Carotid artery ultrasound negative for stenosis, cardiac echo grade 1 diastolic dysfunction -PT OT, speech therapy eval appreciated -Full code Attestations Medical Necessity Statement*: pain management, acutely inflammed joint with mo bility impairment Coding Level of Care Code Acute Automation Developer for [facility] Diagnoses CVA (cerebral vascular accident) I63.9 Swelling of right knee joint M25.461
[2022-02-20] MEDS: ketorolac 30 mg/mL INJ 15 MG IVP ×2 (13:50→21:22)
[2022-02-20] MEDS: predniSONE 20 mg Tablet 40 MG PO (13:50)
[2022-02-20] MEDS: acetaminophen 1,000 MG/100 ML PIGGYBACK 400 MG IV (13:50)
[2022-02-20] MEDS: atorvastatin 40 mg Tablet PO (21:02)
[2022-02-20] MEDS: mirtazapine 15 mg Tablet PO (21:02)
[2022-02-21] VITALS: BP 110/56; PULSE 60; RESP 17; TEMP 36.4; O2SAT 93
[2022-02-21 02:53] LABS: Basophils % 0.1 %; Eosinophils % 0.1 %; Hematocrit 33.4 % (42.0-52.0); Hemoglobin 10.6 g/dL (11.7-16.6); Lymphocytes # 0.8 10^3/uL (0.8-4.8); Mean Corpuscular HGB Conc 31.7 g/dL (30.0-36.0); Mean Corpuscular Hemoglobin 28.8 pg (28.0-34.0); Mean Corpuscular Volume 90.8 fl (80-94); Monocytes # 0.3 10^3/uL (0.2-0.9); Monocytes % 3.9 %; Neutrophils # 7.54 10^3/uL (1.8-7.7); Neutrophils % 86.4 %; Nucleated Red Blood Cells % 0 %; Platelet Count 251 10^3/cmm (130-400); Positive C 1; Red Blood Count 3.68 10^6/uL (4.1-5.3); Red Cell Distribution Width 12.3 % (12.1-15.1); White Blood Count 8.7 10^3/uL (4.0-10.0)
[2022-02-21 03:22] LABS: Blood Urea Nitrogen 22 mg/dL (8-23); Calcium 8.9 mg/dL (8.5-10.5); Carbon Dioxide 22 mmol/L (22-29); Chloride 103 mmol/L (98-107); Glucose 144 mg/dL (65-115); Osmolality Calculated 288 mOsm/kg (285-295); Sodium 136 mmol/L (136-145)
[2022-02-21 03:42] LABS: Anion Gap 15.3 (5-19); Potassium 4.3 mmol/L (3.5-5.1)
[2022-02-21 04:00] VITALS: BP 113/68; PULSE 58; RESP 20; TEMP 36.5; O2SAT 94
[2022-02-21 04:10] LABS: Slide Review Slide Review Perform
[2022-02-21] MEDS: ketorolac 30 mg/mL INJ 15 MG IVP ×2 (05:42→12:31)
[2022-02-21 07:58] VITALS: BP 118/70; PULSE 55; RESP 16; TEMP 36.6; O2SAT 93
--- NOTE | 2022-02-21 08:05 | P.PN_ITS ---
Subjective Subjective: Right knee pain much better Vitals/I&O/Wt Last Vital Signs Temp 97.8 F 02/21/22 07:58 Pulse 55 L 02/21/22 07:58 Resp 16 02/21/22 07:58 BP 118/70 02/21/22 07:58 Pulse Ox 93 02/21/22 07:58 O2 Del Method 02/21/22 07:58 02/20/22 02/21/22 02/21/22 22:59 06:59 14:59 Intake Total 360 / 2086.667 Output Total 200 / 600 100 / 700 300 / 300 Balance 160 / 1486.667 -100 / 1386.667 -300 / -300 Physical Exam Narrative: Right knee with much less swelling. Motion 10 degrees short of full extension to a 60 degrees No erythema or warmth. Data : 02/21/22 02:06 02/21/22 02:06 Micro: Microbiology 02/19/22 15:55 Gram Stain - Final Ankle - Synovial Fluid Body Fluid Culture - Preliminary A&P Assessment and plan (1) Swelling of right knee joint: Right knee seems much less swollen since initiating steroids. Cultures are negative to this point. Clinical picture at this point would probably due to atypical severe exacerbation of degenerative changes. We will continue to follow cultures. Status: Acute Attestations Medical Necessity Statement*: As per medicine. Okay for discharge per Ortho. Coding Level of Care Code Acute Technician Submarine Cable Equipment for Bryan Gudino Diagnoses Swelling of right knee joint M25.461
[2022-02-21] MEDS: pantoprazole DR 40 mg Tablet PO (08:30)
[2022-02-21] MEDS: predniSONE 20 mg Tablet 40 MG PO (08:30)
[2022-02-21] MEDS: tamsulosin 0.4 mg Capsule PO (08:30)
[2022-02-21] MEDS: aspirin 81 mg EC Tablet PO (08:30)
[2022-02-21 11:59] VITALS: BP 135/79; PULSE 61; RESP 18; TEMP 36.4; O2SAT 95
--- NOTE | 2022-02-21 13:58 | PC.CHAP ---
Pastoral Care Encounter/Spiritual Assessment Type of Contact [] Declined assembling fabricator visit [] Patient/Family/Request visit [] Outpatient visit [] Follow-up visit [] Physician referral [] Code/Alert [x] Routine visit [] Staff referral [] Actively dying [] Patient sleeping [] Family support [] [] Out of room [] Palliative care [] [] Receiving care in room [] Pre-surgical visit [] Trauma [] Long length of stay [] ICU visit [] Other: Relational/Emotional Strength [] Patient feels connected with others/family/visitors/staff [] Distress [] Loneliness/isolation [] Abandonment Spirituality of Patient [x] Person of [place] [] Attends Sikh of their [place] [x] Believes in Prayer [] Reads Bible or Confucianist materials [] There are Spiritual issues to be addressed Email Marketing Specialist Interventions [x] Prayer [x] Active listening [x] Non-anxious presence [] Spiritual/emotional support [] Crisis/trauma care [x] Spiritual counseling [] Bereavement support [] Provided bereavement packet [] Provided Bible/devotional materials [] Provided toy/stuffed animal, coloring book to patient or family member [] Provided Communion [] Anointing/[place] [] Salvation [] Completed spiritual assessment [] Other: Impact on Illness or Injury [] Angry [] Fearful [] Anxious [] Often cries [] Exhaustion [] Unable to work [] Unable to attend taoist [] Unable to walk/stand [] Unable to read [] Unable to drive [] Unable to eat/drink [] Unable to sleep [] Unable to be with family [] Patient intubated [] Other: Summary Time spent with patient 10 min
--- NOTE | 2022-02-21 15:59 | PM.PN ---
Subjective Subjective: Patient's knee is significantly improved today. He is able to ambulate better, participated with physical therapy. Cultures from synovial aspirate remain negative to date. Medications: Reviewed: Yes Vitals/I&O/Wt Last Vital Signs Temp 97.5 F L 02/21/22 11:59 Pulse 61 02/21/22 11:59 Resp 18 02/21/22 11:59 BP 135/79 02/21/22 11:59 Pulse Ox 95 02/21/22 11:59 O2 Del Method 02/21/22 11:59 02/21/22 02/21/22 02/21/22 06:59 14:59 22:59 Intake Total 960 / 960 Output Total 100 / 700 450 / 450 Balance -100 / 1386.667 510 / 510 Physical Exam Narrative: General: No acute distress, AO x3 HEENT: PERRLA, pupils bilaterally equal and reactive, pallors not present Chest: Normal vesicular breath sounds, no added sounds, equal good air entry bilaterally CVS: S1-S2 regular, no murmurs, no tachycardia, no gallops, no rubs Abdomen: Soft, nontender, no organomegaly, bowel sounds present Extremity: Significantly improved swelling in the right knee joint, also reports improvement in ankle pain. Data : 02/21/22 02:06 02/21/22 02:06 Micro: Microbiology 02/19/22 15:55 Gram Stain - Final Ankle - Synovial Fluid Body Fluid Culture - Preliminary A&P Assessment and plan (1) CVA (cerebral vascular accident): Status: Acute (2) Swelling of right knee joint: Status: Acute Plan Right knee swelling -Knee CT performed on February 18 showed severe osteoarthritic changes, large knee joint effusion and a septated Overton's cyst. Due to concern for septic arthritis,, arthrocentesis was performed. WBC count 18,000, predominantly PMNLs (96%) Gram stain and culture thus far negative. Less likely to be infectious etiology. No crystals noted per pathology report. Patient has had significant improvement after starting ketorolac and prednisone. Suspect that his knee changes may be related to degenerative arthritis and an acute flare of osteoarthritis. If cultures remain negative at 48 hours, will likely discharge patient with a short steroid course. CVA -Timeframe unknown -Does have chronic slurring of his words, now acutely worsened, with left facial droop on examination, no other focal neurologic deficits -Aspirin, statin to continue -Carotid artery ultrasound negative for stenosis, cardiac echo grade 1 diastolic dysfunction -PT OT, speech therapy eval appreciated -Full code Attestations Medical Necessity Statement*: Thus far cyano we will aspirate cultures appearing to be negative. Transition IV to oral pain medications. If continues to do well anticipate discharge in the upcoming 24 hours. Coding Level of Care Code Acute Search Engine Optimization Strategist for Bryan Gudino Diagnoses CVA (cerebral vascular accident) I63.9 Swelling of right knee joint M25.461
[2022-02-21 16:00] VITALS: BP 140/70; PULSE 59; RESP 16; TEMP 36.6; O2SAT 97
[2022-02-21 19:59] VITALS: BP 128/71; PULSE 61; RESP 16; TEMP 36.8; O2SAT 97
[2022-02-21] MEDS: mirtazapine 15 mg Tablet PO (21:05)
[2022-02-21] MEDS: atorvastatin 40 mg Tablet PO (21:05)
[2022-02-22] VITALS (7 sets, daily range): BP systolic 121–142; BP diastolic 68–76; PULSE 54–72; RESP 16–18; TEMP 36.4–36.8; O2SAT 96–98
[2022-02-22] MEDS: tamsulosin 0.4 mg Capsule PO (09:04)
[2022-02-22] MEDS: aspirin 81 mg EC Tablet PO (09:04)
[2022-02-22] MEDS: predniSONE 20 mg Tablet 40 MG PO (09:04)
[2022-02-22] MEDS: pantoprazole DR 40 mg Tablet PO (09:04)
--- NOTE | 2022-02-22 10:31 | EV_ITS ---
[facility] Test Date: 2022-03-13 Pat Name: Artur Scott Department: Room: 263 Gender: Male Homeowner Association Manager: : 1950 Requested By: Licha Galvin Order Number: [id number] Mckeon MD: Bethanie Negron M.D. Interpretive Statements Date of enrollment: 28 February 2022 End of service: 13 March 2022 Name of study: Mobile cardiac telemetry Requesting provider: Dr. Galvin Clinical indication: Bradycardia, unspecified Interpretation: EVENT MONITOR FINDINGS: Total events recorded----2 Manual 0 Auto triggered------ 2 The baseline rhythm was sinus bradycardia with a heart rate of 52 bpm. There were 0 critical, 0 serious and 2 stable events that occurred. There were no episodes of atrial fibrillation. Patient was tachycardic 2% and bradycardic 56 beats (33-59, average 50 bpm) of time. There were less than 1% ventricular ectopic beats, less than 1% supraventricular ectopic beats and less than 1 other beats. Average heart rate of 60 beats per minute. No pauses greater than or equal to 3 seconds. Symptoms mentioned with the recording----none Arrhythmias recorded with the monitoring--5 beats long run of nonsustained ventricular tachycardia on 02 March at 10:08 AM at 137 bpm. Maximum heart rate recorded sinus tachycardia at 131 bpm on 08 March at 12:55 PM Minimum heart rate recorded sinus bradycardia at 33 bpm on 02 March at 5:36 AM. Conclusion: 1. Baseline rhythm is sinus bradycardia or sinus rhythm. Heart rate ranged from 33 to 131 bpm with average heart rate of 60 bpm. 2. There were no pauses. 3. 5 beats long run of asymptomatic nonsustained ventricular tachycardia. 4. No patient symptoms entered. Copies to Dr. Galvin Electronically Signed On 03-24-2022 19:19:03 CDT by Bethanie Negron M.D. [email or web address]
--- NOTE | 2022-02-22 12:29 | USCV_ITS ---
Artur Scott Age: 71 Gender: M : 1950 Exam Date: 02/22/2022 14:05 Ordering Phys: Licha Galvin MD Technologist: Hernando Siddiqui [place] [facility] [place]: [place] HISTORY: Lower extremity swelling. PROCEDURES: Venous duplex imaging was performed in bilateral lower extremities. The following venous structures were evaluated: common femoral vein, profunda vein, proximal portion of the greater saphenous vein, superficial femoral vein, and the popliteal vein. In addition, the posterior tibial and peroneal trunk were evaluated. Serial compression, augmentation maneuvers, and spectral Doppler flow evaluation were performed. FINDINGS: No evidence of DVT seen in any vessel visualized at this time. CONCLUSIONS No evidence of right lower extremity DVT. No evidence of left lower extremity DVT. Sav Carrera MD (Electronically Signed) Final Date: 23 February 2022 11:54 S
--- NOTE | 2022-02-22 15:07 | PM.DCS ---
Discharge Providers Date of Admission: 02/20/22 13:14 Date of Discharge: February 22, 2022 Attending Provider at Admission: Jacinto Gtz MD Attending Provider at Discharge: Licha Galvin MD Consults: Artur Marie MD/orthopedic surgery Primary Care Provider: Delmar Darnell Diagnoses at Discharge Discharge Diagnosis (1) CVA (cerebral vascular accident): Status: Acute (2) Swelling of right knee joint: Status: Acute Reason for Visit Reason for Visit: right knee infusion,CVA Hospital Course Hospital Course Artur Scott is a 71 year old male with a past medical history of bradycardia, mild LVH, tree of osteoarthritis, history of TIA,? COPD, who presents to [facility] as a transfer from [facility] for right knee swelling, and concerns for subacute CVA.??Patient's deficits included slurred speech, mild left facial droop, dysarthria. He presented to [facility] due to severe right knee swelling significantly worsened to the point where he was unable to ambulate. CT of his right knee showed a right knee joint effusion. CT of the head was additionally performed which revealed left internal capsule small subacute to early chronic infarct. He was admitted to the hospital and underwent arthrocentesis for diagnostic purposes. Cell count was at 18,000. No evidence of crystals on pathology exam. Gram stain and culture remain negative after 48 hours. Low suspicion for infection. Changes appear to be consistent with inflammatory arthritis, probably OA flare. Once gram stain was negative, patient was started on a presumptive course of prednisone 40 mg daily which markedly improved his symptoms within 48 hours. His right knee swelling is significantly improved. He had also complained of some ankle pain 2 days ago which is now completely resolved. Patient is able to participate with physical therapy and ambulated 100 feet. He is being discharged today with recommendations to continue outpatient physical therapy. 1 night prior to discharge she was noted to have sinus bradycardia in the 30s during sleep. Patient was asymptomatic. I discussed her sinus bradycardia event with his outpatient rn support services Dr. Guzman. Patient follows as outpatient for known sinus bradycardia and worsening dyspnea for which she is scheduled for a stress test on February 26, 2022. Echocardiogram was completed as part of CVA diagnostic evaluation. A Holter monitor has been arranged at discharge per his rn support services recommendation. Encouraged to follow-up with heart care services within 7 days of discharge for follow-up of his bradycardia and stress test which is to be performed on the . Prior to discharge it was noted that patient had some swelling over the right cough for which lower extremity venous Duplay was performed to exclude DVT. Physical Exam Narrative: General: No acute distress, AO x3 HEENT: PERRLA, pupils bilaterally equal and reactive, pallors not present Chest: Normal vesicular breath sounds, no added sounds, equal good air entry bilaterally CVS: S1-S2 regular, no murmurs, no tachycardia, no gallops, no rubs Abdomen: Soft, nontender, no organomegaly, bowel sounds present Neuro: dysarthria + Extremities: Right knee swelling is significantly improved. Right lower extremity appears slightly more swollen compared to the left side. Discharge Data Studies Completed and Pending Completed Studies During Hospitalization Category Date Time Status CT knee RT wo con* [id number] Routine Cat Scan 02/18/22 11:34 Completed CV carotid duplex BI* [id number] Routine Ultrasound 02/18/22 03:58 Completed CV. echo complete* [id number] Routine Ultrasound 02/18/22 03:58 Completed Pending at discharge Category Date Time Status MCT/Event Monitor 14 Days Routine Exams 02/22/22 10:31 Ordered Blood Culture Routine Lab 02/18/22 05:30 Results Body Fluid Culture & GS Routine Lab 02/19/22 15:55 [place] [id number] Stat Ultrasound 02/22/22 12:29 Taken Radiology Impressions Carotid Doppler Study 02/18/22 03:58 IMPRESSION: No carotid arterial stenosis. REFERENCES: SRU CRITERIA. The degree of internal carotid artery stenosis is based on criteria defined by the Society of Radiologists in Ultrasound (SRU). Normal is no stenosis. Mild is less than 50% stenosis. Moderate is 50-69% stenosis. Severe is greater than 69% stenosis to near occlusion. Near occlusion is a markedly narrowed lumen. Total occlusion is no detectable patent lumen. Knee CT 02/18/22 11:34 IMPRESSION: 1. Tricompartmental osteoarthritic changes are present in the knee as described above. 2. Large knee joint effusion. 3. Septated Overton's cyst. 4. There is heterogeneous density in the expected location of the anterior cruciate ligament likely representing chronic injury. 5. There are ossified densities adjacent to the tibial spine which may represent loose bodies versus ligamentous calcifications. Laboratory Results WBC 8.7 10^3/uL (4.0-10.0) 02/21/22 02:06 RBC 3.68 10^6/uL (4.1-5.3) L 02/21/22 02:06 Hgb 10.6 g/dL (11.7-16.6) L 02/21/22 02:06 Hct 33.4 % (42.0-52.0) L 02/21/22 02:06 MCV 90.8 fl (80-94) D 02/21/22 02:06 MCH 28.8 pg (28.0-34.0) 02/21/22 02:06 MCHC 31.7 g/dL (30.0-36.0) D 02/21/22 02:06 RDW 12.3 % (12.1-15.1) 02/21/22 02:06 Plt Count 251 10^3/cmm (130-400) 02/21/22 02:06 MPV 12.0 fL (7.4-10.4) H 02/21/22 02:06 Neut % (Auto) 86.4 % 02/21/22 02:06 Lymph % (Auto) 9.0 % 02/21/22 02:06 Doniphan % (Auto) 3.9 % 02/21/22 02:06 Eos % (Auto) 0.1 % 02/21/22 02:06 Baso % (Auto) 0.1 % 02/21/22 02:06 Neut # (Auto) 7.54 10^3/uL (1.8-7.7) 02/21/22 02:06 Lymph # (Auto) 0.8 10^3/uL (0.8-4.8) 02/21/22 02:06 Doniphan # (Auto) 0.3 10^3/uL (0.2-0.9) 02/21/22 02:06 Eos # (Auto) 0.0 10^3/uL (0.0-0.8) 02/21/22 02:06 Baso # (Auto) 0.0 10^3/uL (0.0-0.1) 02/21/22 02:06 Nucleated RBC % (auto) 0 % 02/21/22 02:06 Nucleated RBCs # 0.0 /100WBC 02/21/22 02:06 ESR 38 mm/hr (0-10) H 02/18/22 05:30 Sodium 136 mmol/L (136-145) 02/21/22 02:06 Potassium 4.3 mmol/L (3.5-5.1) 02/21/22 02:06 Chloride 103 mmol/L (98-107) 02/21/22 02:06 Carbon Dioxide 22 mmol/L (22-29) 02/21/22 02:06 Anion Gap 15.3 (5-19) 02/21/22 02:06 BUN 22 mg/dL (8-23) 02/21/22 02:06 Creatinine 0.9 mg/dL (0.7-1.2) 02/21/22 02:06 GFR Calculation Not Reportable 02/21/22 02:06 Glucose 144 mg/dL (65-115) H 02/21/22 02:06 Estimat Average Glucose 105 02/18/22 05:30 Hemoglobin A1c 5.3 % (4.0-6.0) 02/18/22 05:30 Calculated Osmolality 288 mOsm/kg (285-295) 02/21/22 02:06 Uric Acid 4.9 mg/dL (3.4-7.0) 02/18/22 05:30 Calcium 8.9 mg/dL (8.5-10.5) 02/21/22 02:06 Troponin T Baseline 12 ng/L (0-15) 02/18/22 05:30 Troponin T 120 Minute 11.98 ng/L (0-15) 02/18/22 07:39 Delta Troponin T -0.02 ABS# (0-10) L 02/18/22 07:39 Troponin T Hi Sens 6Hr 8.73 ng/L (0-15) 02/18/22 11:26 Troponin T Hi Sens 6Hr Delta -3.27 ng/L (0-12) L 02/18/22 11:26 C-Reactive Protein 29.3 mg/L (0.0-4.9) H 02/18/22 05:30 Triglycerides 57 mg/dL (0-150) 02/18/22 05:30 Cholesterol 135 mg/dL (0-200) 02/18/22 05:30 LDL Cholesterol, Calc 70 mg/dL (50-129) 02/18/22 05:30 HDL Cholesterol 54 mg/dL (60-100) L 02/18/22 05:30 LDL/HDL Ratio 1.30 RATIO (0.00-3.22) 02/18/22 05:30 Cholesterol/HDL Ratio 2.50 mg/dL (1.0-5.00) 02/18/22 05:30 Procalcitonin 0.07 ng/mL (0-0.5) 02/18/22 05:30 TSH 2.10 uIU/mL (0.27-4.20) 02/18/22 05:30 Fluid Crystals See path consult 02/19/22 15:55 Synovial Color Pale yellow (PALE YELLOW) 02/19/22 15:55 Synovial Appearance Hazy (CLEAR) 02/19/22 15:55 Synovial WBC 90509 /uL (0-150) H 02/19/22 15:55 Synovial RBC 1 10^3/uL (0-0) H 02/19/22 15:55 Synovial Mononuclear 0.587 10^3/uL 02/19/22 15:55 Synov Polynuclear WBCs 17.639 10^3/uL 02/19/22 15:55 Synovial Other Cells Not Reportable 02/19/22 15:55 Synovial Polynuclear % 96.800 % 02/19/22 15:55 Synovial Mononuclear % 3.200 % 02/19/22 15:55 Path Cons w/Slide Yes 02/19/22 15:55 Vitals Last Vital Signs Temp 97.6 F 02/22/22 11:32 Pulse 54 L 02/22/22 11:32 Resp 16 02/22/22 11:32 BP 133/74 02/22/22 11:32 Pulse Ox 98 02/22/22 11:32 O2 Del Method 02/22/22 11:32 Discharge Plan Discharge Patient Disposition: Home Condition: Stable Prescriptions: New atorvastatin 40 mg Tablet 40 mg PO BEDTIME 30 Days Qty: 30 0RF prednisone 20 mg Tablet 40 mg PO DAILY 5 Days Qty: 5 0RF aspirin 81 mg Tablet,Delayed Release (Dr/Ec) 81 mg PO DAILY 30 Days Qty: 30 0RF tramadol 50 mg Tablet 50 mg PO Q8H PRN (Reason: Moderate Pain) 7 Days Qty: 20 0RF Continued ibuprofen 800 mg tablet 800 mg PO Q8H PRN (Reason: Pain) omeprazole 20 mg capsule,delayed release(DR/EC) 20 mg PO DAILY trazodone 50 mg tablet 100 mg PO BEDTIME PRN (Reason: Sleep) mirtazapine 15 mg tablet 15 mg PO BEDTIME Flomax 0.4 mg Capsule 0.4 mg PO DAILY Discharge Orders: Discharge Order (Routine); Ordered 02/22/22 Ordered By: Licha Galvin Other Ambulatory Orders: MCT/Event Monitor 14 Days (Routine) Timeframe: 3 Days Facility: [facility] - Location: Cardiology Outpatients Ordered By: Licha Galvin Physical Therapy Eval and Treat Outpatient (Order) Timeframe: 3 Days Facility: [facility] - Location: Physical Therapy Ordered By: Licha Galvin Referrals: Joan Salas FNP [Nurse Practitioner] - 02/28/22 2:30 pm Discharge Diet: Usual diet Discharge Activity: Resume usual activity Patient Instructions: Prednisone (By mouth), Aspirin (By mouth), Tramadol (By mouth), Atorvastatin (By mouth), Ischemic Stroke (GEN), Stroke (GEN), Opioid Safety, Stroke Stoplight Activity Restrictions/Additional Instructions: APPOINTMENT FOR HEART MONITOR AT [facility] ON Saturday AT 3:00pm Discharge Attestations Time Spent in Discharge Care*: greater than 30 min Quality Metrics Clinical Quality Measures [ No reported AMI, CVA or VTE this stay] Coding Level of Care Code Acute Chg FW DC note Diagnoses CVA (cerebral vascular accident) I63.9 Swelling of right knee joint M25.461
--- NOTE | 2022-02-22 18:07 | PC.NURSE ---
pt left via private vehicle with . Discharge papers were given to pt with understanding of it.
--- NOTE | 2022-03-07 09:34 | PC.SOCIAL ---
Follow Up Call CM Attempted to reach patient for a follow up call, unable to reach him at this time.
--- NOTE | 2022-03-08 14:56 | PC.SOCIAL ---
Patient's called and states that she got a message from Farida but hasn't heard back and she would like her cell phone to be used not the home phone. She provided the number of [phone]. MONSERRAT updated her that Farida no longer works here and that Claudia took her place. CM message Claudia with patient's 's phone number to return call. also concerned that patient didn't get his OP PT arranged. CM updated her that orders were sent to [facility] with a note wanting it arranged at the [facility]. She states that nobody seems to know where the orders are. CM reached out to the [facility] who states that they don't have any records of this. CM refaxed signed order and facesheet. MONSERRAT spoke to Bharat at [facility] who states that they got the order and will use the 's cell as primary contact. MONSERRAT called patient's back and left her a voicemail updating her and provided [facility] number.
== END 2022-02-22 17:30 | disposition home or self-care (01) | DRG 66 ==
PROVIDERS: Internal Medicine; Orthopaedic Surgery; Admitting Provider Family Medicine; PCP Student in an Organized Health Care Education/Training Program; Visit Provider Student in an Organized Health Care Education/Training Program
DX: I63.9 Cerebral infarction, unspecified (principal); R47.1 Dysarthria and anarthria; R29.810 Facial weakness; R29.704 NIHSS score 4; M25.461 Effusion, right knee; Z86.73 Personal history of transient ischemic attack (TIA), and cerebral infarction without residual deficits; J44.9 Chronic obstructive pulmonary disease, unspecified; G89.29 Other chronic pain; N40.0 Benign prostatic hyperplasia without lower urinary tract symptoms; K21.9 Gastro-esophageal reflux disease without esophagitis; F32.9 Major depressive disorder, single episode, unspecified; G47.30 Sleep apnea, unspecified; Z87.891 Personal history of nicotine dependence; M71.21 Synovial cyst of popliteal space [Baker], right knee
CPT/HCPCS: 36415; 73700; 80048; 80061; 80503; 83036; 84145; 84443; 84484; 84550; 85025; 85651; 86140; 87040; 87070; 87075; 87205; 89050; 92507; 92523; 92610; 93005; 93306; 93880; 93970; 97110; 97116; 97161; 97166; 97530; 97535; G0378; G0379; J1885; J2270; J7030; J7512

== ENCOUNTER → 2022-02-28 14:02 | Outpatient (BNVA) | payer MEDICARE, OTHER, SELFPAY | PROVIDERS: PCP Student in an Organized Health Care Education/Training Program; Visit Provider Nurse Practitioner Family | DX: R00.1 Bradycardia, unspecified (principal) | CPT/HCPCS: 99213 ==

== ENCOUNTER 2022-03-05 08:30 | Outpatient (CLI) | payer MEDICARE, OTHER, SELFPAY ==
--- NOTE | 2022-03-05 | ECG_ITS ---
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 Interpretive Statements NAME OF STUDY: LEXISCAN SESTAMIBI STRESS TEST INDICATION: [Shortness of Breath, ] Procedure: At the baseline, the blood pressure was 119/71 mmHg with a heart rate of 54 bpm. The electrocardiogram showed sinus bradycardia, normal axis and normal ST-T The Lexiscan was infused over a period of 20 seconds. A total of 0.4 mg of Lexiscan was infused. The stress phase was continued for a total of 5 minutes. Heart rate was at the end of stress phase was 68 bpm and a blood pressure of 113/70 mmHg. The EKG at the peak infusion revealed normal sinus rhythm with no significant ST-T wave changes. Sestamibi was injected 20 seconds after the Lexiscan infusion. Blood pressure at the end of recovery phase was 114/67 mmHg with a heart rate of 68 bpm. Conclusion: 1. Normal EKG response to Lexiscan infusion 2. No Lexiscan induced chest pain or cardiac arrhythmia. 3. Normal blood pressure and heart rate response. 4. Sestamibi/sestamibi perfusion scan pending; see separate report. Electronically Signed On 03-10-2022 21:12:51 CDT by Kemal Guillory M.D. [email or web address]
[2022-03-05 09:06] VITALS: BMI 23.5
--- NOTE | 2022-03-05 09:08 | NMCV_ITS ---
NM lluvia perf SPECT r/s* [id number] MistyArtur Age: 71 Gender: M : 1950 Exam Date: 03/05/2022 10:09 Ordering Phys: Kemal Guillory M.D ([email or web address]) Technologist: SHARON Fatima Exam [facility] Indications: SHORTNESS OF BREATH STRESS TEST Please see separate stress test report in [facility] for full findings IMAGE PROTOCOL Rest/Stress 1 Lexiscan Day Radiopharmaceutical Dose (mCi) Administration Site Administered by Rest: Tc-99m 10.7 IV SHARON Fatima Sestamibi Stress:Tc-99m 32.4 IV SHARON Gurrola Sestamibi Rest: 05-Mar-2022 60 Discovery 630 Stress: 05-Mar-2022 30 Discovery 630 0.4mg Lexiscan. Supine position only as patient was unable to lay prone. SPECT RESULTS Technical Quality: Excellent Raw Data Analysis: Normal Image Corrections: No attenuation or motion correction applied Summed Stress Score: 0 Summed Rest Score: 0 Summed Difference Score: 0 PERFUSION FINDINGS SPECT images demonstrate homogeneous tracer distribution throughout the myocardium. FUNCTIONAL RESULTS (calculated via Gated SPECT) Stress Image LV EF (%): 70 Stress EDV (mL):88 TID: 0.95 Stress ESV (mL):26 FUNCTIONAL FINDINGS: There is normal left ventricular systolic function. IMPRESSIONS 1. Normal myocardial perfusion imaging with no evidence of ischemia. 2. LV systolic function is normal Kemal Guillory MD (Electronically Signed) Final Date: 06 March 2022 09:48 S
[2022-03-05] MEDS: regadenoson 0.4 Mg/5 ml Syringe IVP (10:40)
[2022-03-05 10:51] VITALS: BP 114/67; PULSE 69
== END 2022-03-05 08:31 | disposition home or self-care (01) ==
LOC: CDL 08:36
PROVIDERS: PCP Student in an Organized Health Care Education/Training Program; Visit Provider Internal Medicine
DX: R06.02 Shortness of breath (principal)
CPT/HCPCS: 78452; 93017; A9500; J2785

== ENCOUNTER → 2022-07-16 10:25 | Outpatient (BNVA) | payer MEDICARE, OTHER, SELFPAY | PROVIDERS: PCP Family Medicine; Visit Provider Internal Medicine Cardiovascular Disease | DX: R07.2 Precordial pain (principal); R00.1 Bradycardia, unspecified; G47.30 Sleep apnea, unspecified; Z87.891 Personal history of nicotine dependence; Z87.820 Personal history of traumatic brain injury | CPT/HCPCS: 99213 ==

== ENCOUNTER 2023-03-18 17:05 | Emergency (ER) | payer MEDICARE, OTHER, SELFPAY ==
[2023-03-18 17:09] VITALS: BP 157/81; PULSE 53; RESP 18; TEMP 37; O2SAT 95
--- NOTE | 2023-03-18 17:17 | XRR_ITS ---
PROCEDURE INFORMATION: Exam: XR Right Knee Exam date and time: 03/18/2023 5:32 PM Age: 72 years old Clinical indication: Injury or trauma; Fall; Blunt trauma; Knee; Right; Additional info: Pain, fall today TECHNIQUE: Imaging protocol: Radiologic exam of the right knee. Views: 3 views. COMPARISON: No relevant prior studies available. FINDINGS: Bones/joints: Degenerative change or osteoarthritis is seen about the right knee, particularly of the lateral femoral compartment with moderate joint space narrowing. Hypertrophic degenerative bony change is also seen. No fracture or dislocation. Mild chondrocalcinosis. No significant suprapatellar fullness or effusion. Soft tissues: No significant focal soft tissue abnormality. XR/XR knee RT 3V* [id number] IMPRESSION: Degenerative change, without fracture or acute osseous abnormality.
--- NOTE | 2023-03-18 17:17 | XRR_ITS ---
PROCEDURE INFORMATION: Exam: XR Right Hip Exam date and time: 03/18/2023 5:30 PM Age: 72 years old Clinical indication: Injury or trauma; Fall; Blunt trauma (contusions or hematomas); Right; Hip; Additional info: Fall, pain of RT hip- fall 4 days ago with inj to same hip TECHNIQUE: Imaging protocol: Radiologic exam of the right hip. Views: 1 view hip with pelvis when performed. COMPARISON: No relevant prior studies available. FINDINGS: Bones/joints: Moderate degenerative change or osteoarthritis is seen about the right hip. This includes component of joint space narrowing and hypertrophic bony change of the inferior medial femoral head. No fracture or dislocation is seen. Osseous structures show no acute abnormality. Soft tissues: No significant focal soft tissue abnormality. Vasculature: Mild arterial vascular calcification. XR/XR hip RT 2-3V wo/w pel* [id number] IMPRESSION: Degenerative change or osteoarthritis, without fracture or acute osseous abnormality.
--- NOTE | 2023-03-18 17:22 | ED_ITS ---
HPI - Extremity Problem General: Chief complaint: Extremity Injury, Lower Stated complaint: rt hip pain Time Seen by Provider: 03/18/23 17:11 Source: patient and EMS Mode of arrival: EMS Limitations: other (History of TBI with difficulty speaking) History of Present Illness: Patient was brought to the emergency department today by EMS for evaluation treatment of fall happening at his home today. EMS report notes that approximately 3 days ago, patient also had a fall at home and was seen at [facility]. Report indicates that they were concerned of a fracture to the right hip and consulted with [facility] orthopedics in [place]. It was determined that the finding on the imaging was an old injury and patient was discharged home. Patient reports that today he was ambulating down his hallway to get to the bathroom when he fell again. Patient again complains of right hip pain but now also right knee pain. Chart review shows documented history of recurrent falls-especially after a TBI many years ago and stroke last year. Communication with patient is extremely difficult due to longstanding communication issues due to his traumatic brain injury. Patient's and sister arrived to the emergency department and assist with communication. They also note that the patient has a primary care doctor- Dr Marshall and that just last week, patient got his first cortisone injection in his right knee for his osteoarthritis. Patient recently started Celebrex for osteoarthritic pain. Patient had indicated he had a quad walker but, family states he was not using it at the time of his fall today. Review of Systems General: Reports: 10 or more systems reviewed and unremarkable except in HPI and below PFSH ED PFSH: Medical History BPH (benign prostatic hyperplasia) Bradycardia Chest pain CVA (cerebral vascular accident) CVA (cerebral vascular accident) GERD (gastroesophageal reflux disease) History of pituitary tumor Insomnia Major depression Pituitary adenoma Rotator cuff tear Sleep apnea TBI (traumatic brain injury) Surgical History H/O: knee surgery History of abdominal surgery History of appendectomy History of back surgery Hx of cholecystectomy Family History Other Cancer Hypertension Denies family history of Diabetes CAD (coronary artery disease) Dementia Psychiatric illness Chronic kidney disease (CKD) Family history of premature coronary artery disease Lung disease Stroke Social History Smoking and tobacco/nicotine status: former use of tobacco/nicotine Alcohol intake: never Substance/Drug Use: never Physical Exam Const: COMMON NORMALS: no acute distress, patient oriented x3 and alert HENMT: COMMON NORMALS: normocephalic, atraumatic and hearing grossly normal bilaterally HEAD & SCALP: normocephalic and atraumatic Eye: COMMON NORMALS: Equal, round and reactive pupils present, EOMs intact bilaterally and conjunctivae normal CONJUNCTIVA: Yes conjunctivae normal PUPIL: Yes Equal, round and reactive pupils present Neck/C-Spine: COMMON NORMALS: full ROM and no JVD Lymph: LYMPHATIC: no lymphadenopathy noted Resp: COMMON NORMALS: normal respiratory effort, No retractions and No use of accessory muscles Cardio: COMMON NORMALS: no JVD and regular rate RATE: regular rate Extremity: NARRATIVE EXTREMITY EXAM: Patient demonstrates ability to flex and extend at the right hip and knee joint. Leg is not shortened or rotated out at rest. Generalized right anterior knee pain without bruising, effusion or abrasions noted. Tenderness to the lateral and anterior right hip region. Neuro: COMMON NORMALS: patient oriented x3 SENSORIUM/ORIENTATION: Yes alert Psych: COMMON NORMALS: mental status grossly normal, Normal thought process present, cooperative and normal affect THOUGHT PROCESS: Normal thought process present Skin: COMMON NORMALS: no rashes or lesions noted and turgor normal GENERAL SKIN EXAM: no rashes or lesions noted and turgor normal Course Vital Signs: Vital signs: Vital Signs Temperature 98.6 F 03/18/23 17:09 Pulse Rate 53 L 03/18/23 17:09 Respiratory Rate 18 03/18/23 17:09 Blood Pressure 157/81 03/18/23 17:09 Pulse Oximetry 95 03/18/23 17:09 Oxygen Delivery Me thod Room Air 03/18/23 17:09 MDM - Extremity (Nontraumatic) Medical Decision Making Patient is x-rays today reveal no signs of any acute bony abnormality or concerns. Discussed with patient and family negative findings but, with his osteoarthritis may notice more pain and discomfort for a prolonged amount of time. As patient has just started on Celebrex, encouraged him to continue this medication. We will also help treat symptomatically for inflammation and discomfort from this fall. Patient is to use his walker for ambulation assistance at all times. Requested a follow-up appointment primary care at the end of the week for general recheck. From what I understand, patient's discharge plan was to stay at his sister's house for additional care and assistance for the next several days. Differential Diagnosis Unlikely gout, cellulitis, superficial thrombophlebitis, lower extremity edema or deep vein thrombosis of lower extremity Lab Data Radiology Impressions Hip/Pelvis X-Ray 03/18/23 17:17 IMPRESSION: Degenerative change or osteoarthritis, without fracture or acute osseous abnormality. Knee X-Ray 03/18/23 17:17 IMPRESSION: Degenerative change, without fracture or acute osseous abnormality. All radiology interpretation(s) finalized by discharge Discharge Plan Discharge Patient Disposition: Home Clinical Impression: Fall at home, Acute pain of right hip, Acute pain of right knee Condition: Stable Prescriptions: New methylprednisolone 4 mg tablets,dose pack See Rx Instructions PO .COMPLEX Qty: 21 0RF Rx Instructions: orally per package directions Voltaren Arthritis Pain 1 % gel 4 g topical QID Qty: 100 0RF Rx Instructions: apply to single knee, ankle, foot; for foot includes sole/toes/top of foot No Action ibuprofen 800 mg tablet 800 mg PO Q8H PRN (Reason: Pain) omeprazole 20 mg capsule,delayed release(DR/EC) 20 mg PO DAILY mirtazapine 15 mg tablet 15 mg PO BEDTIME aspirin 81 mg tablet,delayed release (DR/EC) 81 mg PO DAILY atorvastatin 40 mg tablet 40 mg PO DAILY Discharge Orders: Discharge ED (Routine); Ordered 03/18/23 Ordered By: Amalia Garcia Referrals: Serg Marshall DO [Primary Care Provider] - Patient Instructions: Fall Prevention for Older Adults (ED), Hip Pain (ED) Activity Restrictions/Additional Instructions: X-rays today show no signs of any concerning injuries to the joints or the bones. Still, there is quite a bit of osteoarthritis found in these joints which makes any injuries more painful and longer to heal. I am providing use medication which will supplement the Celebrex you have at home to help with acute joint pain. I do recommend trying to keep up and moving the next few days using your walker at all times-prevent staying in bed or in a recliner for extended amounts of time. I also recommend a follow-up appointment with the primary care doctor a little later this week for general recheck. Coding Level of Care Code ED Senior Manufacturing Technician for Bryan Gudino
[2023-03-18] MEDS: predniSONE 20 mg Tablet 60 MG PO (19:14)
[2023-03-18] MEDS: ketorolac 60 mg/2 mL INJ IM (19:17)
[2023-03-18 19:38] VITALS: BP 161/76; O2SAT 96
[2023-03-18 19:55] VITALS: BP 161/76; PULSE 51; O2SAT 96
== END 2023-03-18 19:47 | disposition home or self-care (01) ==
PROVIDERS: Emergency Provider Physician Assistant; PCP Family Medicine
DX: M25.551 Pain in right hip (principal); M25.561 Pain in right knee; Z79.82 Long term (current) use of aspirin; Z87.891 Personal history of nicotine dependence; Z86.73 Personal history of transient ischemic attack (TIA), and cerebral infarction without residual deficits; W19.XXXA Unspecified fall, initial encounter
CPT/HCPCS: 73502; 73562; 96372; 99284; J1885; J7512

== ENCOUNTER 2023-09-03 08:02 | Outpatient (CLI) | payer MEDICARE, OTHER, SELFPAY ==
--- NOTE | 2023-09-03 08:08 | USCV_ITS ---
Artur Scott Age: 72 Gender: M : 1950 Exam Date: 09/03/2023 08:28 Ordering Phys: Serg Marshall DO Technologist: MICHELLE [place]am Location[place] [facility] [place]ication: AAA SCREENING HISTORY: Diameter (cm) AP x Transverse x Length Velocity (cm/s) Waveform Prox Aorta: 2.50 x 2.90 x 84.90 Triphasic Mid Aorta: 2.00 x 2.00 x 100.60 Triphasic Distal Aorta: 2.00 x 1.70 x 57.10 Triphasic Right Iliac Prox: 1.20 x 1.10 x 100.40 Triphasic Left Iliac Prox: 1.10 x 1.10 x 70.90 Triphasic Stent Prox Landing x x Aneurysmal Sac Max x x Lt Lat Sac Dim Rt Lat Sac Dim Stent Dist Landing x x Right Iliac Stent x x Left Iliac Stent x x Right Renal Art Left Renal Art FINDINGS: CONCLUSIONS No evidence of abdominal aortic or bilateral iliac aneurysm. Sav Carrera MD (Electronically Signed) Final Date: 03 September 2023 12:26 S
== END 2023-09-03 08:03 | disposition home or self-care (01) ==
LOC: RAD 08:03
PROVIDERS: PCP Family Medicine; Visit Provider Family Medicine
DX: Z13.6 Encounter for screening for cardiovascular disorders (principal); J44.9 Chronic obstructive pulmonary disease, unspecified
CPT/HCPCS: 76706

== ENCOUNTER 2024-07-22 13:04 | Emergency (ER) | payer MEDICARE, OTHER, SELFPAY ==
[2024-07-22 13:09] VITALS: BP 155/75; PULSE 58; RESP 16; TEMP 36.5; O2SAT 99
--- NOTE | 2024-07-22 13:10 | XR_ITS ---
WS: [id number] Exam: XR hip RT 2-3V wo/w pel* [id number] Date/Time of Exam: 07/22/2024 1:12 PM Reason For Exam: fall Comparison 03/18/2023. No acute fracture. Moderately advanced DJD of the joint compartment. Soft tissues are unremarkable. XR/XR hip RT 2-3V wo/w pel* [id number] IMPRESSION: 1. Moderately advanced DJD. No acute fracture.
--- NOTE | 2024-07-22 13:30 | PC.PHAR ---
Pt states he only takes asa 81mg when he remembers. Pt had several old meds removed from list: Atorvastatin 40mg daily last fill 07/16/22, Mirtazapine 15mg at hs last fill 11/03/21, Omeprazole 20mg daily last fill 05/11/20, Zolpidem 5mg at bedtime last fill 04/07/24 30ds, and Voltaren 1%gel qid last fill 03/18/23 15ds. Pts' used to give his asa but she 2 weeks ago and he forgets to take it.
--- NOTE | 2024-07-22 13:31 | CT_ITS ---
WS: [id number] NONCONTRAST CT RIGHT HIP TECHNIQUE: Noncontrast CT RIGHT hip with coronal and sagittal reformatted images. CLINICAL INFORMATION: fall COMPARISON: None. DLP: 305.[address] scans at [facility] use at least one of these dose optimization techniques: automated exposure control; mA and/or kV adjustment per patient size (includes targeted exams where dose is matched to clinical indication); or iterative reconstruction. FINDINGS: Advanced degenerative arthritis RIGHT hip with joint space narrowing and [id number] articulation. Hypertrophic changes about the acetabulum. No acute fractures. Groundglass lesion involving the greater trochanter measuring approximately 2.2 x 1.7 cm with a relatively narrow zone of transition although some irregularity along the margins. No cortical destruction or soft tissue mass. This is indeterminate but could represent a small focus of fibrous dysplasia however metastatic disease or primary bone neoplasm such as chondrosarcoma not excluded in a patient this age. Recommend follow-up MRI and percutaneous core biopsy. No comparisons. Vascular calcification. CT/CT hip RT wo con* [id number] IMPRESSION: 1. Advanced degenerative arthritis RIGHT hip. 2. No acute fractures. 3. Groundglass lesion in the greater trochanter described above. Recommend fur ther evaluation with MRI and percutaneous core biopsy will likely be needed for definitive evaluation Liz Dawkins MD at 07/22/2024 2:14 PM.
--- NOTE | 2024-07-22 13:33 | ED_ITS ---
HPI - Extremity Problem General: Chief complaint: Extremity Injury, Lower Stated complaint: fall/pain in hip area right side Time Seen by Provider: 07/22/24 13:10 Source: patient Mode of arrival: ambulatory Limitations: no limitations History of Present Illness: 73-year-old male who states that he had tripped on his bed last night and landed on his right hip been having right hip pain since then. States he walks a walker made and able to bear weight but is quite painful. Denies any his head denies any other injury Associated symptoms: Deny chest pain, fever(s) or rash Related Data Home Medications ?Medication ?Instructions ?Recorded ?Confirmed aspirin 81 mg tablet,delayed 81 mg PO DAILY 07/16/22 0 07/22/24 release Allergies Allergy/AdvReac Type Severity Reaction Status Date / Time buspirone (From BuSpar) Allergy Unknown Verified 07/22/24 13:16 Penicillins Allergy shortness Verified 07/22/24 13:16 of breath codeine AdvReac Intermediate vomiting Verified 07/22/24 13:16 Review of Systems Const: Denies: fever(s), chills, body aches or change in appetite ENMT: Denies: throat pain or dental pain Card: Denies: chest pain Resp: Denies: dyspnea GI: Denies: abdominal pain, nausea, vomiting or diarrhea Musc: Reports: extremity pain; Denies: neck pain or back pain Skin/Breast: Denies: rash Neuro: Denies: headache(s) [facility] ED PFSH: Medical History CVA (cerebral vascular accident) Sleep apnea Pituitary adenoma BPH (benign prostatic hyperplasia) TBI (traumatic brain injury) Rotator cuff tear CVA (cerebral vascular accident) Major depression GERD (gastroesophageal reflux disease) Insomnia History of pituitary tumor Bradycardia Chest pain Surgical History H/O: knee surgery History of abdominal surgery History of appendectomy History of back surgery Hx of cholecystectomy Family History Other Cancer Hypertension Denies family history of Diabetes CAD (coronary artery disease) Dementia Psychiatric illness Chronic kidney disease (CKD) Family history of premature coronary artery disease Lung disease Stroke Social History Smoking and tobacco/nicotine status: former use of tobacco/nicotine Alcohol intake: never Substance/Drug Use: never Physical Exam Const: COMMON NORMALS: no acute distress, patient oriented x3 and healthy appearing HENMT: COMMON NORMALS: normocephalic and atraumatic HEAD & SCALP: normocephalic and atraumatic Eye: COMMON NORMALS: conjunctivae normal CONJUNCTIVA: Yes conjunctivae normal Neck/C-Spine: COMMON NORMALS: full ROM and supple Chest: COMMONS NORMALS: normal inspection of the chest Resp: COMMON NORMALS: normal respiratory effort Cardio: COMMON NORMALS: regular rate, regular rhythm and No murmurs present (Cardio) RATE: regular rate RHYTHM: regular rhythm GI: COMMON NORMALS: Normal to inspection, nondistended, normoactive bowel sounds present, Soft to palpation, non-tender and no masses PALPATION: Yes Soft to palpation Extremity: NARRATIVE EXTREMITY EXAM: Tenderness noted to right hip no obvious deformity distal pulses sensation intact Neuro: COMMON NORMALS: patient oriented x3, moves all extremities and no focal motor deficits Psych: COMMON NORMALS: mental status grossly normal, Normal thought process p resent and cooperative THOUGHT PROCESS: Normal thought process present Skin: COMMON NORMALS: no rashes or lesions noted and no wounds GENERAL SKIN EXAM: no rashes or lesions noted Course Vital Signs: Vital signs: Vital Signs Temperature 97.7 F 07/22/24 13:09 Pulse Rate 55 L 07/22/24 14:40 Respiratory Rate 16 07/22/24 13:09 Blood Pressure 147/77 07/22/24 14:40 Pulse Oximetry 98 07/22/24 14:40 Oxygen Delivery Me thod Room Air 07/22/24 14:11 MDM - Extremity (Nontraumatic) Medical Decision Making Patient presents with hip pain CT shows no acute fracture did inform him the lesion him that he needs outpatient MRI he stable for discharge follow-up outpatient return if worsening. Lab Data Radiology Impressions Hip/Pelvis X-Ray 07/22/24 13:10 IMPRESSION: 1. Moderately advanced DJD. No acute fracture. Hip CT 07/22/24 13:31 IMPRESSION: 1. Advanced degenerative arthritis RIGHT hip. 2. No acute fractures. 3. Groundglass lesion in the greater trochanter described above. Recommend further evaluation with MRI and percutaneous core biopsy will likely be needed for definitive evaluation Liz Dawkins MD at 07/22/2024 2:14 PM. All radiology interpretation(s) finalized by discharge Discharge Plan Discharge Patient Disposition: Home Clinical Impression: Hip pain, right, Fall Condition: Stable Prescriptions: No Action aspirin 81 mg tablet,delayed release (DR/EC) 81 mg PO DAILY Discharge Orders: Discharge ED (Routine); Ordered 07/22/24 Ordered By: Liz Dawkins Referrals: Serg Marshall DO [Primary Care Provider] - 4-7 days Discharge Diet: Advance as tolerated Discharge Activity: Resume usual activity Patient Instructions: Hip Pain (ED) Print Language: Swedish Coding Level of Care Code ED Community Education Specialist for Bryan Gudino
[2024-07-22] MEDS: HYDROcodone-acetaminophen 7.5-325 mg Tablet 1 TAB PO (14:08)
[2024-07-22 14:11] VITALS: BP 149/84; PULSE 65; O2SAT 95
[2024-07-22 14:40] VITALS: BP 147/77; PULSE 55; O2SAT 98
== END 2024-07-22 14:41 | disposition home or self-care (01) ==
PROVIDERS: Emergency Provider Emergency Medicine; PCP Family Medicine
DX: M25.551 Pain in right hip (principal); W19.XXXA Unspecified fall, initial encounter; Z79.82 Long term (current) use of aspirin; Z87.891 Personal history of nicotine dependence; Z86.73 Personal history of transient ischemic attack (TIA), and cerebral infarction without residual deficits
CPT/HCPCS: 73502; 73700; 99284